=== PATIENT | male | born 1960 | race African-American/Black ===

== ENCOUNTER 2020-11-11 17:21 | Emergency (ER) | payer MEDICAID ==
[~2020-11-11] VITALS: Ht 180.3 cm; Wt 113.6 kg
[2020-11-11 17:30] VITALS: BP 115/61
[2020-11-11] MEDS ORDERED: AZAT50TA21 PO (17:39)
[2020-11-11] MEDS ORDERED: ASPI-1227 PO (17:39)
[2020-11-11] MEDS ORDERED: METF-960 PO (17:39)
[2020-11-11] MEDS ORDERED: INSLAN SQ (17:39)
== END 2020-11-11 18:28 | disposition home or self-care (01) ==
LOC: EMS 17:33
DX: Z20.822 Contact with and (suspected) exposure to COVID-19 (principal); J44.9 Chronic obstructive pulmonary disease, unspecified; E11.9 Type 2 diabetes mellitus without complications; Z88.5 Allergy status to narcotic agent; Z79.4 Long term (current) use of insulin; Z79.82 Long term (current) use of aspirin
CPT/HCPCS: 99283; U0003

== ENCOUNTER 2020-12-18 08:46 | Day surgery (SDC) | payer MEDICAID ==
[2020-12-16 12:27] LABS: COVID AG,FIA SOURCE NASOPHARYNGEAL
[~2020-12-18] VITALS: Ht 180.3 cm; Wt 118.2 kg
[~2020-12-18 08:46] MED LIST: AMLO10TA55 PO; ASPI-1227 PO; ATOR40TA71 PO; AZAT50TA21 PO; GABA-533 PO; GLIP5TAB11 PO; INSU100I26 SQ; MELO-108 PO; METF-960 PO; MIRT45TA83 PO; RINGERS SOLUTION,LACTATED 500 ML IV ONE; SILD20TA2 PO; TAMS-13 PO
[2020-12-18] MEDS ORDERED: MIDAZOLAM HCL 2 MG/2 ML VIAL IVP ONE (08:47)
[2020-12-18] MEDS ORDERED: LIDOCAINE/PF 1% 2 ML VIAL CAUDAL ONE (08:47)
[2020-12-18] MEDS ORDERED: POVIDONE-IODINE 10% 15 ML SOLUTION UD TP ONE (08:47)
[2020-12-18] MEDS ORDERED: EPINEPHrine 1:1,000 [1 MG/ML] AMP ET ONE (08:47)
[2020-12-18] MEDS ORDERED: TETRACAINE HCL/PF 0.5% 4 ML OPHTHALMIC SOLUTION OD ONE (08:47)
[2020-12-18] MEDS ORDERED: CHONDR SULF A SOD/HYALURONATE 1.05 ML KIT IO ONE (08:47)
[2020-12-18] MEDS ORDERED: FentaNYL CITRATE PF 100 MCG/2 ML VIAL IVP ONE (08:47)
[2020-12-18] MEDS ORDERED: ONDANSETRON HCL 4 MG/2 ML VIAL IVP ONE (08:47)
[2020-12-18] MEDS: MOXIFLOXACIN HCL 0.5% 3 ML OPHTHALMIC SOLUTION OD SCH ×3 (09:19→09:35)
[2020-12-18] MEDS: TROPICAMIDE 1% 2 ML OPHTHALMIC SOLUTION OD SCH ×3 (09:20→09:35)
[2020-12-18] MEDS: PHENYLEPHRINE HCL 2.5% 2 ML OPHTHALMIC SOLUTION OD SCH ×3 (09:20→09:35)
[2020-12-18] MEDS: KETOROLAC TROMETHAMINE 0.5% 5 ML OPHTHALMIC SOLUTION OD SCH ×3 (09:20→09:35)
[2020-12-18 09:28] LABS: GLUCOMETER DEV NAME(LOC) SDS.; GLUCOSE,POINT OF CARE 126 MG/DL (70-110)
== END 2020-12-18 12:30 | disposition home or self-care (01) ==
LOC: SURGERY 08:46
PROVIDERS: ATTEND Ophthalmology
DX: E11.36 Type 2 diabetes mellitus with diabetic cataract (principal); H25.11 Age-related nuclear cataract, right eye; J44.9 Chronic obstructive pulmonary disease, unspecified; I10 Essential (primary) hypertension; Z88.0 Allergy status to penicillin; Z88.8 Allergy status to other drugs, medicaments and biological substances; Z79.4 Long term (current) use of insulin; Z79.82 Long term (current) use of aspirin; Z79.899 Other long term (current) drug therapy; Z98.890 Other specified postprocedural states
CPT/HCPCS: 66984; 82962; 87426; 93005; C9803; J0171; J2250; J2405; J3010; J3490; Q9967; V2632

== ENCOUNTER 2021-02-03 06:34 | Day surgery (SDC) | payer MEDICAID ==
[~2021-02-03] VITALS: Ht 180.3 cm; Wt 113.6 kg
[~2021-02-03 06:34] MED LIST changes: +CYCLOPENTOLATE HCL 1% 2 ML OPHTHALMIC SOLUTION ONE; +FLURBIPROFEN SODIUM 0.03% 2.5 ML OPHTHALMIC SOLUTION ONE; +METF-1211 PO; -METF-960 PO; +MOXIFLOXACIN HCL 0.5% 3 ML OPHTHALMIC SOLUTION ONE; +PHENYLEPHRINE HCL 2.5% 2 ML OPHTHALMIC SOLUTION ONE; +TETRACAINE HCL/PF 0.5% 4 ML OPHTHALMIC SOLUTION ONE; +TETRACAINE HCL/PF 0.5% 4 ML OPHTHALMIC SOLUTION OS ONE; +TROPICAMIDE 1% 2 ML OPHTHALMIC SOLUTION ONE
[2021-02-03] MEDS ORDERED: NEOMYCIN/POLYMYXIN B/DEXAMETH 3.5 GM OPHTHALMIC OINTMENT OD ONE (06:35)
[2021-02-03] MEDS ORDERED: POVIDONE-IODINE 10% 15 ML SOLUTION UD TP ONE (06:35)
[2021-02-03] MEDS ORDERED: FentaNYL CITRATE PF 100 MCG/2 ML VIAL IVP ONE (06:35)
[2021-02-03] MEDS ORDERED: DEXAMETHASONE SOD PHOS 4 MG/ML VIAL IVP ONE (06:35)
[2021-02-03] MEDS ORDERED: BALANCED SALT 15 ML OPHTHALMIC IRRIG.SOLN IO ONE (06:35)
[2021-02-03] MEDS ORDERED: MIDAZOLAM HCL 2 MG/2 ML VIAL IVP ONE (06:35)
[2021-02-03] MEDS ORDERED: EPINEPHrine 1:1,000 [1 MG/ML] AMP SQ ONE (06:35)
[2021-02-03] MEDS ORDERED: LIDOCAINE/PF 1% 2 ML VIAL IM ONE (06:35)
[2021-02-03] MEDS ORDERED: HYALURONATE SOD 8.5MG/0.85ML 10 MG/ML SYRINGE IO ONE (06:35)
[2021-02-03] MEDS ORDERED: TETRACAINE HCL/PF 0.5% 4 ML OPHTHALMIC SOLUTION OD ONE (06:35)
[2021-02-03] MEDS ORDERED: PrednisoLONE ACETATE 1% 5 ML OPHTHALMIC SUSPENSION AD ONE (06:35)
[2021-02-03 07:01] LABS: COVID AG,FIA SOURCE NASOPHARYNGEAL
[2021-02-03] MEDS: FLURBIPROFEN SODIUM 0.03% 2.5 ML OPHTHALMIC SOLUTION OS SCH ×3 (07:18→07:36)
[2021-02-03] MEDS: TROPICAMIDE 1% 2 ML OPHTHALMIC SOLUTION OS SCH ×3 (07:18→07:36)
[2021-02-03] MEDS: CYCLOPENTOLATE HCL 1% 2 ML OPHTHALMIC SOLUTION OS SCH ×3 (07:18→07:36)
[2021-02-03] MEDS: PHENYLEPHRINE HCL 2.5% 2 ML OPHTHALMIC SOLUTION OS SCH ×3 (07:19→07:36)
[2021-02-03] MEDS: MOXIFLOXACIN HCL 0.5% 3 ML OPHTHALMIC SOLUTION OS SCH ×2 (07:24→07:36)
[2021-02-03 07:47] LABS: GLUCOMETER DEV NAME(LOC) SDS.; GLUCOSE,POINT OF CARE 212 MG/DL (70-110)
== END 2021-02-03 10:30 | disposition home or self-care (01) ==
LOC: SURGERY 06:34
PROVIDERS: ATTEND Ophthalmology
DX: E11.36 Type 2 diabetes mellitus with diabetic cataract (principal); H25.12 Age-related nuclear cataract, left eye; Z88.8 Allergy status to other drugs, medicaments and biological substances; J43.9 Emphysema, unspecified; I10 Essential (primary) hypertension; E66.01 Morbid (severe) obesity due to excess calories; Z79.899 Other long term (current) drug therapy; Z98.890 Other specified postprocedural states
CPT/HCPCS: 66984; 82962; 87426; C9803; J0171; J1100; J2250; J3010; J3490; J7120; V2632